=== PATIENT | female | born 1995 | race Caucasian/White ===

== ENCOUNTER 2022-02-15 09:21 | Emergency (ER) | payer OTHER ==
[~2022-02-15] VITALS: Ht 152.4 cm; Wt 86.6 kg
[~2022-02-15 09:21] MED LIST: BIRTH CONTROL PILLS
[2022-02-15 09:51] VITALS: BP_SYST 124
--- NOTE | 2022-02-15 09:59 | NUR ---
BIB FAMILY WITH C/C LAST NIGHT WAS WALKING IN HALLWAY OF HOME AND HAD A MECHANICAL FALL. REPORTS LAPTOP HIT LEFT KNEE AND RIGHT ARM HIT EITHER THE FLOOR OR WALL. + CMS TO ALL EXTREMITIES, DENIES ANY NUMBNESS OR TINGLING TO RIGHT ARM. WHEN FLEXING ARM PT REPORTS PAIN AT ELBOW AND UNABLE TO FULLY BEND ARM. HX OF ASTHMA AND HYPOTHYROID.
--- NOTE | 2022-02-15 10:01 | NUR ---
PLACED IN HALLWAY BED.
[2022-02-15] MEDS ORDERED: SYN50 PO (10:03)
--- NOTE | 2022-02-15 10:14 | NUR ---
Pt BIB parent to ER from home. CC Right elbow pain and left knee. PS 7/10 . Pt states carrying a laptop and loss balance falling to hallway hardwood floor.Accidental Mechanical fall on a slippery floor. Pt has steady gait. aaox4, denies loc and head trauma. skin intact vss nad.
--- NOTE | 2022-02-15 10:17 | NUR ---
MIRIAM ALVARADO in [facility] examining patient.
--- NOTE | 2022-02-15 10:50 | NUR ---
Pt refuses HCG test. Parent states pt monitored in a home care setting and "could not possibly be " notified .
--- NOTE | 2022-02-15 10:53 | NUR ---
bedside giving results of Radiology xray report.
[2022-02-15] MEDS ORDERED: HYDR-3919 PO (10:59)
--- NOTE | 2022-02-15 13:00 | NUR ---
Patient given written and verbal discharge instructions and verbalizes understanding. ER MD discussed with patient the results and treatment provided. Patient in stable condition. ID arm band removed. Opportunity for questions provided and answered. Medication side effect fact sheet provided.
[2022-02-15 13:55] VITALS: BP_SYST 124
== END 2022-02-15 13:00 | disposition home or self-care (01) ==
LOC: SED 09:21
DX: S42.411A Displaced simple supracondylar fracture without intercondylar fracture of right humerus, initial encounter for closed fracture (principal); S80.02XA Contusion of left knee, initial encounter; W18.30XA Fall on same level, unspecified, initial encounter; Y93.89 Activity, other specified; Y92.89 Other specified places as the place of occurrence of the external cause; Y99.8 Other external cause status
CPT/HCPCS: 73564; 99284